=== PATIENT | female | born 1970 | race Caucasian/White ===

== ENCOUNTER 2024-06-20 23:48 | Inpatient (IN) | payer OTHER ==
[~2024-06-20] VITALS: Ht 149.9 cm; Wt 47.6 kg
[~2024-06-20 23:48] MED LIST: BARIATRIC MV-I1 EACH; CALCIUM CITRAT1 EAC5; LEXAPRO20 MG PO; METOPROLOL SUCC25 MG PO; MILK OF MA2400 MG/10 PO; VITAMIN D3250 MC1; WEGOVY1 MG/0.5 M SQ
[2024-06-20 23:50] VITALS: TEMP 98.1
[2024-06-21] VITALS (9 sets, daily range): BP systolic 91–121; BP diastolic 62–81; PULSE 63–89; RESP 17–20; TEMP 97.3–98.4; O2SAT 96–100
[2024-06-21] MEDS: ONDANSETRON HCL INJ 2MG/ML 2ML 2 MG/ML VIAL IV STA (00:11)
[2024-06-21] MEDS: SODIUM CHLORIDE 0.9% 1000ML 1,000 ML IV ONE (00:12)
[2024-06-21] MEDS: Morphine 4mg INJECTION 4 MG/ML INJ IV ONE (00:12)
[2024-06-21 00:21] LABS: BASOPHILS % 0.4 % (0.0-1.0); EOSINOPHILS # (AUTO) 0.2 (0.0-0.4); EOSINOPHILS % 2.3 % (0.0-6.0); HEMATOCRIT 43.3 % (34.2-44.1); HEMOGLOBIN 13.6 g/dL (12.0-16.0); LYMPHOCYTES # (AUTO) 2.1 (1.0-3.2); LYMPHOCYTES % 27.3 % (18.0-39.1); MEAN CORPUSCULAR HEMOGLOBIN 31.3 pg (28-32); MEAN CORPUSCULAR HGB CONC 31.4 g/dL (31-35); MEAN CORPUSCULAR VOLUME 99.5 fL (81-99); MONOCYTES # (AUTO) 0.5 (0.2-0.8); MONOCYTES % 6.8 % (4.4-11.3); NEUTROPHILS # (AUTO) 4.8 (2.1-6.9); NEUTROPHILS % 63.1 % (38.7-80.0); PLATELET COUNT 258 x10e3/uL (140-360); RED BLOOD COUNT 4.35 x10e6/uL (3.6-5.1); RED CELL DISTRIBUTION WIDTH 11.9 % (11.7-14.4); WHITE BLOOD COUNT 7.68 x10e3/uL (4.8-10.8)
[2024-06-21 00:29] LABS: ALANINE AMINOTRANSFERASE 44 IU/L (0-55); ALBUMIN/GLOBULIN RATIO 1.2 (0.8-2.0); ANION GAP 13.9 mmol/L (8-16); BILIRUBIN,TOTAL 0.4 mg/dL (0.2-1.2); BLOOD UREA NITROGEN 13 mg/dL (7-26); BUN/CREATININE RATIO 17 (6-25); CALCIUM 9.6 mg/dL (8.4-10.2); CARBON DIOXIDE 26 mmol/L (22-29); CHLORIDE 104 mmol/L (98-107); CREATINE KINASE 74 IU/L (29-168); CREATININE, SERUM 0.77 mg/dL (0.57-1.11); EST GLOMERULAR FILTRATION RATE 92 ML/MIN (>=60); GLUCOSE 108 mg/dL (74-118); POTASSIUM 3.9 mmol/L (3.5-5.1); SODIUM 140 mmol/L (136-145); TOTAL PROTEIN 7.3 g/dL (6.5-8.1)
[2024-06-21 00:30] LABS: AMYLASE 125 U/L (25-125); LIPASE 96 U/L (8-78)
[2024-06-21 00:38] LABS: TROPONIN I < 0.001 ng/mL (0-0.300)
[2024-06-21 00:46] LABS: ALKALINE PHOSPHATASE 100 IU/L (40-150)
[2024-06-21] MEDS ORDERED: IOPAMIDOL 370 MG/ML 100 ML INFUS..BTL INJ ONE (00:49)
[2024-06-21 00:52] LABS: CLARITY,URINE SL CLOUDY (CLEAR); COLOR,URINE YELLOW (YELLOW)
[2024-06-21 00:53] LABS: BILIRUBIN,URINE NEGATIVE (NEGATIVE); GLUCOSE, URINE NEGATIVE (NEGATIVE); KETONES,URINE NEGATIVE (NEGATIVE); LEUKOCYTE ESTERASE ,URINE TRACE (NEGATIVE); NITRITE,URINE NEGATIVE (NEGATIVE); PH,URINE 6.5 (5 - 7); PROTEIN,URINE DIPSTICK NEGATIVE (NEGATIVE); URINE UROBILINOGEN 0.2 mg/dL (0.2 - 1)
[2024-06-21 00:56] LABS: BACTERIA,URINE MANY /HPF; EPITHELIAL CELLS,URINE MODERATE /LPF; RBC,URINE 0-5 /HPF (0-5)
[2024-06-21] MEDS: BENZOCAINE/TETRACAINE/BUTAMBEN AERO SPRAY 56 GM CAN TOP ONE (01:57)
[2024-06-21] MEDS: SODIUM CHLORIDE 0.9% 1000ML 1,000 ML IV SCH (02:12)
[2024-06-21] MEDS: ONDANSETRON HCL INJ 2MG/ML 2ML 2 MG/ML VIAL IV PRN (04:40)
[2024-06-21] MEDS: Morphine 4mg INJECTION 4 MG/ML INJ IV PRN (04:40)
[2024-06-21] MEDS ORDERED: PROMETHAZINE 12.5MG/ NACL 0.9% 12.5 MG/50 ML BAG IV PRN (10:30)
[2024-06-21] MEDS: HYDROMORPHONE 1MG/1ML INJ IV ONE (10:52)
[2024-06-21] MEDS ORDERED: PROMETHAZINE HCL (IM) 25 MG/ML VIAL IM PRN (11:00)
[2024-06-21] MEDS ORDERED: HYDROMORPHONE 1MG/1ML INJ IV PRN (13:00)
[2024-06-21] MEDS: ACETAMINOPHEN 650 MG SUPP PR PRN (13:05)
[2024-06-22] VITALS (9 sets, daily range): BP systolic 97–115; BP diastolic 58–76; PULSE 62–81; RESP 16–20; TEMP 98.3–99; O2SAT 94–100
[2024-06-22 06:17] LABS: BASOPHILS % 0.5 % (0.0-1.0); EOSINOPHILS # (AUTO) 0.1 (0.0-0.4); EOSINOPHILS % 1.1 % (0.0-6.0); HEMATOCRIT 37.6 % (34.2-44.1); LYMPHOCYTES # (AUTO) 1.3 (1.0-3.2); LYMPHOCYTES % 20.1 % (18.0-39.1); MEAN CORPUSCULAR HEMOGLOBIN 31.3 pg (28-32); MEAN CORPUSCULAR HGB CONC 31.9 g/dL (31-35); MEAN CORPUSCULAR VOLUME 98.2 fL (81-99); MONOCYTES # (AUTO) 0.4 (0.2-0.8); NEUTROPHILS # (AUTO) 4.8 (2.1-6.9); NEUTROPHILS % 72.1 % (38.7-80.0); PLATELET COUNT 200 x10e3/uL (140-360); RED BLOOD COUNT 3.83 x10e6/uL (3.6-5.1); RED CELL DISTRIBUTION WIDTH 11.9 % (11.7-14.4); WHITE BLOOD COUNT 6.62 x10e3/uL (4.8-10.8)
[2024-06-22 06:36] LABS: MAGNESIUM 1.7 MG/DL (1.3-2.1); PHOSPHORUS 3.8 MG/DL (2.3-4.7)
[2024-06-22 06:38] LABS: ALBUMIN 3.1 g/dL (3.5-5.0); ALBUMIN/GLOBULIN RATIO 1.2 (0.8-2.0); BILIRUBIN,TOTAL 0.7 mg/dL (0.2-1.2); CALCIUM 8.4 mg/dL (8.4-10.2); CREATININE, SERUM 0.75 mg/dL (0.57-1.11); TOTAL PROTEIN 5.6 g/dL (6.5-8.1)
[2024-06-22] MEDS: DEXTROSE 50% SYRINGE 50 ML IV PRN (07:08)
[2024-06-22] MEDS ORDERED: LACTULOSE SYRUP 20 GM/30 ML UDC PO ONE (08:45)
[2024-06-22] MEDS: LACTULOSE SYRUP 20 GM/30 ML UDC ONE (10:09)
[2024-06-22] MEDS: MAGNESIUM SULF 1GRAM/DEXTROSE 100 ML IV ONE (10:15)
[2024-06-22] MEDS: LACTULOSE SYRUP 20 GM/30 ML UDC PO ONE (10:15)
[2024-06-23 04:06] VITALS: BP 115/76; PULSE 66; RESP 20; TEMP 99; O2SAT 100
[2024-06-23 04:38] VITALS: BP 102/74; PULSE 76; RESP 16; TEMP 98.2; O2SAT 98
[2024-06-23 07:38] VITALS: BP 106/78; PULSE 62; RESP 18; TEMP 97.8; O2SAT 98
[2024-06-23 08:15] LABS: ALBUMIN 3.2 g/dL (3.5-5.0); ALBUMIN/GLOBULIN RATIO 1.3 (0.8-2.0); ANION GAP 13.7 mmol/L (8-16); BILIRUBIN,TOTAL 0.5 mg/dL (0.2-1.2); CALCIUM 8.7 mg/dL (8.4-10.2); CREATININE, SERUM 0.71 mg/dL (0.57-1.11); MAGNESIUM 1.7 MG/DL (1.3-2.1); POTASSIUM 3.7 mmol/L (3.5-5.1); TOTAL PROTEIN 5.7 g/dL (6.5-8.1)
[2024-06-23] MEDS: LACTULOSE SYRUP 20 GM/30 ML UDC PO ONE (09:15)
[2024-06-23 09:24] VITALS: BP 106/78; PULSE 62; RESP 18; TEMP 97.8; O2SAT 98
[2024-06-23] MEDS ORDERED: ONDANSETRON ODT4 MG PO (10:51)
[2024-06-23] MEDS ORDERED: LACTULOSE20 GM/30 M PO (10:51)
[2024-06-23 11:36] VITALS: BP 103/82; PULSE 71; RESP 18; TEMP 97.7; O2SAT 96
[2024-06-23] MEDS: MAGNESIUM OXIDE 400 MG TAB PO SCH (11:37)
[2024-06-23] MEDS ORDERED: MAG-OXIDE400 MG PO (11:47)
== END 2024-06-23 14:40 | disposition home or self-care (01) | DRG 394 ==
LOC: ER 23:52 → ERHOLD 06-21 01:52 → MED/SURG3 06-21 02:37
PROVIDERS: ADMIT Internal Medicine; ATTEND Internal Medicine
PROC: 0D9670Z Drainage of Stomach with Drainage Device, Via Natural or Artificial Opening (ICD-10-PCS; principal; 2024-06-21)
DX: K46.0 Unspecified abdominal hernia with obstruction, without gangrene (principal); K56.50 Intestinal adhesions [bands], unspecified as to partial versus complete obstruction; R11.2 Nausea with vomiting, unspecified; K59.00 Constipation, unspecified; E83.42 Hypomagnesemia; R74.8 Abnormal levels of other serum enzymes; R00.1 Bradycardia, unspecified; F41.9 Anxiety disorder, unspecified; Z98.84 Bariatric surgery status; Z90.49 Acquired absence of other specified parts of digestive tract; Z79.899 Other long term (current) drug therapy
CPT/HCPCS: 36415; 74018; 74177; 80053; 81001; 81003; 82150; 82550; 82553; 82948; 83690; 83735; 84100; 84484; 85025; 93005; 99284; J1171; J2270; J2405; J2470; J2543; J2550; J3475; J7030; J7799; Q9967